=== PATIENT | male | born 1990 | race Two or more races ===

== ENCOUNTER 2019-08-07 11:27 | Outpatient (CLI) | payer OTHER ==
--- NOTE | 2019-08-07 13:56 | Diagnostic Imaging Report ---
Clinical Indication:Right wrist pain Technique: 3 views of the right wrist Comparison: None Findings: No acute fractures. No dislocations. The joint spaces are preserved. Impression: Negative
--- NOTE | 2019-08-07 13:57 | Diagnostic Imaging Report ---
Clinical Indication:Left wrist pain Technique: 3 views of the left wrist Comparison: None Findings: No acute fractures. No dislocations. The joint spaces are preserved Impression: Negative
== END 2019-08-07 13:27 | disposition home or self-care (01) ==
LOC: RAD 11:27
DX: M25.532 Pain in left wrist (principal); M25.531 Pain in right wrist